=== PATIENT | male | born 1960 | race Caucasian/White ===

== ENCOUNTER 2020-08-24 09:10 | Inpatient (IN) | payer OTHER ==
[2020-08-24 09:39] VITALS: BMI 22.1
[2020-08-24] MEDS ORDERED: METHADONE HCL 10 MG TABLET (FOR DETOX USE ONLY) PO ONE (10:44)
[2020-08-24] MEDS ORDERED: MENTHOL/PHENOL 1 EACH UD MM PRN (10:45)
[2020-08-24] MEDS ORDERED: MAG HYDROX/AL HYDROX/SIMETH 30 ML UNIT-DOSE CUP PO PRN (10:45)
[2020-08-24] MEDS ORDERED: ACETAMINOPHEN 325 MG TABLET (FP) PO PRN ×2 (10:45)
[2020-08-24] MEDS ORDERED: NICOTINE POLACRILEX 2 MG GUM BUC PRN (10:45)
[2020-08-24] MEDS ORDERED: ONDANSETRON *ODT* 4 MG TABLET SL PRN (10:45)
[2020-08-24] MEDS ORDERED: IBUPROFEN 400 MG TABLET (FP) PO PRN (10:45)
[2020-08-24] MEDS ORDERED: MAGNESIUM CITRATE 300 ML BOTTLE PO PRN (10:45)
[2020-08-24] MEDS ORDERED: BISMUTH SUBSALICYLATE 524 MG/30 ML UD PO PRN (10:45)
[2020-08-24] MEDS ORDERED: MAGNESIUM HYDROX 2400MG/30ML ORAL SUSPENSION 30 ML CUP PO PRN (10:45)
[2020-08-24] MEDS ORDERED: ALBUTEROL SO4 HFA INHALER IH PRN (11:53)
[2020-08-24] MEDS: diazePAM 5 MG TABLET PO PRN ×2 (12:19→18:09)
[2020-08-24] MEDS: CLOTRIMAZOLE 1%TOPICAL SOLUTION 30 ML BOTTLE TP SCH ×2 (12:27→23:44)
[2020-08-24] MEDS: hydrOXYzine PAMOATE 25 MG CAPSULE (FP) PO SCH ×3 (15:16→23:24)
[2020-08-24] MEDS ORDERED: MELATONIN 5 MG TABLETS PO SCH (22:00)
[2020-08-24] MEDS ORDERED: THIAMINE HCL 100 MG TABLET (FP) PO SCH (22:00)
[2020-08-24] MEDS: METHOCARBAMOL 500 MG TABLET PO PRN (23:24)
[2020-08-24] MEDS: cloNIDine HCL 0.1 MG TABLET PO PRN (23:24)
[2020-08-25] MEDS: hydrOXYzine PAMOATE 25 MG CAPSULE (FP) PO SCH ×3 (07:03→13:17)
[2020-08-25] MEDS ORDERED: METHADONE HCL 10 MG TABLET (FOR DETOX USE ONLY) ONE (09:23)
[2020-08-25] MEDS ORDERED: METHADONE HCL 5 MG TABLET (FOR DETOX USE ONLY) ONE (09:23)
[2020-08-25] MEDS ORDERED: PRENATAL VITAMINS W/ FOLIC ACID TABLET (FP) PO SCH (10:00)
[2020-08-25] MEDS ORDERED: HYDROCHLOROTHIAZIDE 25 MG TABLET (FP) PO SCH (10:00)
[2020-08-25] MEDS ORDERED: LISINOPRIL 10 MG TABLET PO SCH (10:00)
[2020-08-25] MEDS ORDERED: ASPIRIN 81 MG CHEWABLE TABLETS PO SCH (10:00)
[2020-08-25] MEDS ORDERED: METHADONE (DETOX) 20 MG, METHADONE (DETOX) 5 MG PO ONE (10:00)
[2020-08-25] MEDS: CLOTRIMAZOLE 1%TOPICAL SOLUTION 30 ML BOTTLE TP SCH (10:39)
[2020-08-25] MEDS: diazePAM 5 MG TABLET PO PRN (10:40)
[2020-08-25] MEDS: METHOCARBAMOL 500 MG TABLET PO PRN (10:41)
[2020-08-25 10:51] LABS: HEMATOCRIT 43.1 % (35.4-49); HEMOGLOBIN 14.1 GM/dL (11.7-16.9); MCH 29.2 pg (25.7-33.7); MCHC 32.8 g/dl (32.0-35.9); MEAN PLT VOLUME 9.8 fl (7.5-11.1); PLATELET COUNT 142 K/MM3 (134-434); RBC 4.85 M/mm3 (4.00-5.60); RDW 14.5 % (11.9-15.9); WHITE BLOOD COUNT 4.1 K/mm3 (4.0-10.0)
[2020-08-25 10:56] LABS: POTASSIUM 4.5 mmol/L (3.5-5.1)
[2020-08-25 11:00] LABS: ALBUMIN 3.2 g/dl (3.4-5.0); BLOOD UREA NITROGEN 19.8 mg/dL (7-18); CALCIUM 9.7 mg/dL (8.5-10.1)
[2020-08-25 11:02] LABS: CREATININE 0.9 mg/dL (0.55-1.3)
[2020-08-25 11:04] LABS: BILIRUBIN,TOTAL 0.5 mg/dL (0.2-1); TOT PROT 7.6 g/dl (6.4-8.2)
[2020-08-25] MEDS: cloNIDine HCL 0.1 MG TABLET PO PRN (13:21)
[2020-08-25 14:48] VITALS: BP 178/90; PULSE 49; TEMP 96.9
[2020-08-26] MEDS ORDERED: METHADONE HCL 10 MG TABLET (FOR DETOX USE ONLY) PO ONE (10:00)
[2020-08-27] MEDS ORDERED: METHADONE (DETOX) 10 MG, METHADONE (DETOX) 5 MG PO ONE (10:00)
[2020-08-28] MEDS ORDERED: METHADONE HCL 10 MG TABLET (FOR DETOX USE ONLY) PO ONE (10:00)
[2020-08-29] MEDS ORDERED: METHADONE HCL 5 MG TABLET (FOR DETOX USE ONLY) PO ONE (06:00)
== END 2020-08-25 14:58 | disposition left against medical advice (07) | DRG 770 ==
LOC: YASAS 09:10 → Y3N 11:12
PROVIDERS: ADMIT Allergy & Immunology; ATTEND Allergy & Immunology
PROC: HZ2ZZZZ Detoxification Services for Substance Abuse Treatment (ICD-10-PCS; principal; 2020-08-24)
DX: F11.23 Opioid dependence with withdrawal (principal); F17.210 Nicotine dependence, cigarettes, uncomplicated; F41.9 Anxiety disorder, unspecified; F32.9 Major depressive disorder, single episode, unspecified; F51.05 Insomnia due to other mental disorder; I10 Essential (primary) hypertension; J45.909 Unspecified asthma, uncomplicated; M54.5 Low back pain; G89.29 Other chronic pain; B35.3 Tinea pedis; R00.1 Bradycardia, unspecified; R01.1 Cardiac murmur, unspecified
CPT/HCPCS: 36415; 80053; 85027; 86593; 86780; 93005; 93010; C9803; J0735; U0003